=== PATIENT | male | born 2000 | race Caucasian/White ===

== ENCOUNTER 2022-11-27 20:25 | Emergency (ER) | payer OTHER, SELFPAY ==
--- NOTE | ~2022-11-27 | XR_ITS ---
EXAMINATION: XR knee RT min 4V DATE: 11/27/2022 20:39 INDICATION: Right knee pain post injury TECHNIQUE: Anteroposterior, 2 oblique and crosstable lateral views of the right knee were obtained COMPARISON: None. FINDINGS: Alignment is normal. No fracture. Joint spaces appear normal on nonweightbearing imaging. No joint e ffusion/layering lipohemarthrosis. Soft tissues are unremarkable. IMPRESSION: 1. Negative right knee radiographs. Reviewed, dictated and finalized at location A.
[2022-11-27 20:27] VITALS: BP 135/82; PULSE 65; RESP 20; TEMP 36.3; O2SAT 100
[2022-11-27] MEDS: KETOROLAC (*BKC) 60 MG/2 ML VIAL IM (22:34)
[2022-11-27] MEDS: HYDROcodone/acetaminophen (*CRX) 5-325 MG TABLET 1 TAB PO (22:34)
--- NOTE | 2022-11-27 22:45 | ED.LOWEXIN ---
HPI - Extremity Injury (Lower) General Chief Complaint: Extremity Injury, Lower Stated Complaint: Right leg injury Time Seen by Provider: 11/27/22 20:43 Source: patient Mode of arrival: ambulatory Limitations: no limitations History of Present Illness HPI Narrative: Patient is a 22 y/o male who presents to the ED with c/o R knee pain. Patient reports he was playing basketball earlier today and landed wrong on his right foot after jumping up for a lay up. He states his knee twisted at that time. He felt sharp pain immediately afterwards. He does not remember hearing or feeling a pop. He has not tried ambulating since then. He complains of pain and swelling to his right knee, worse with full extension. Denies any numbness or tingling. He has not taken anything for pain prior to arrival. Related Data Allergies Allergy/AdvReac Type Severity Reaction Status Date / Time No Known Allergies Allergy Verified 11/27/22 20:30 Review of Systems Review of Systems: CONSTITUTIONAL: Denies fever, chills, or sweats. SKIN: Denies rash or itching. MUSCULOSKELETAL: See HPI. NEUROLOGIC: Denies tingling, numbness, or weakness. All systems reviewed & are unremarkable except as noted in HPI and below Exam Narrative: GENERAL: Well appearing, well-nourished, non-toxic, in no acute distress. HEAD: Normocephalic, atraumatic. NECK: Supple. No adenopathy, no masses. RESPIRATORY: Airway patent, respirations nonlabored. CARDIOVASCULAR: Regular rate and rhythm without murmurs, rubs, or gallops. Pedal pulses 2+ and equal bilaterally. MUSCULOSKELETAL: Moves all extremities. Limited ROM of R knee flexion, nearly full extension of R knee but discomfort reported with full extension. Tenderness palpation along medial and inferior joint spaces. No significant pain with ballottement of patella. Mild swelling noted to anterior knee. Sensation intact. Discomfort reported with anterior drawer testing. SKIN: Warm, dry, normal color. No rashes. NEURO: A&O X3. Speech clear. Cranial nerves II-XII grossly intact. Steady gait. No ataxic movements. PSYCHIATRIC: Appropriate mood and affect. Normal interaction. Course Vital Signs Vital signs: Vital Signs Temperature 97.4 F L 11/27/22 20:27 Pulse Rate 65 11/27/22 20:27 Respiratory Rate 20 11/27/22 20:27 Blood Pressure 135/82 11/27/22 20:27 Pulse Oximetry 100 11/27/22 20:27 Oxygen Delivery Room Air 11/27/22 20:27 Temperature 97.4 F L 11/27/22 20:27 Pulse Rate 65 11/27/22 20:27 Respiratory Rate 20 11/27/22 20:27 Blood Pressure 135/82 11/27/22 20:27 Pulse Oximetry 100 11/27/22 20:27 Oxygen Delivery Room Air 11/27/22 20:27 MDM - Extremity Injury (Lower) MDM Narrative Medical decision making narrative: Patient presented to ED with right knee pain and swelling, twisting mechanism of injury. Patient's injury is consistent with musculoskeletal etiology. No signs of neurologic or vascular compromise on physical examination. Compartments are soft without signs of compartment syndrome. XR without evidence for osseous abnormality, joint effusion. Patient with positive anterior drawer testing, discussed likelihood of ligamentous versus meniscal injury. Will provide patient with knee immobilizer, crutches. Will provide pain medication. Patient is felt to be stable for discharge home and further outpatient management and treatment. Advised to call orthopedic office tomorrow morning to make follow-up appointment for further evaluation. Given return precautions. Discharged in stable condition. Medical Records Attestation: I reviewed the patient's medical records. Imaging Data Attestation: I personally reviewed and interpreted this imaging study as follows: Radiologist's impression: ITS Impressions Knee X-Ray 11/27/22 20:49 IMPRESSION: 1. Negative right knee radiographs. Discharge Plan Discharge Clinical Impression: Acute internal derangement
== END 2022-11-27 22:57 | disposition home or self-care (01) ==
PROVIDERS: Emergency Provider Physician Assistant
DX: M23.90 Unspecified internal derangement of unspecified knee (principal)
CPT/HCPCS: 73564; 96372; 99283; A9270; J1885

== ENCOUNTER → 2022-12-02 14:34 | Outpatient (CLI) | payer OTHER, SELFPAY ==
--- NOTE | ~2022-12-02 | MR_ITS ---
EXAMINATION: MR knee RT wo con DATE: 12/02/2022 15:15 INDICATION: Internal derangement of the right knee with generalized right knee pain and limited range of motion post fall while playing basketball TECHNIQUE: Magnetic resonance imaging (MRI) of the right knee was performed without intravenous contr ast. Sequences included coronal PD-weighted FSE, coronal PD-weighted FS FSE, sagittal T2-weighted FS E, sagittal PD-weighted FS FSE and axial PD weighted fat saturated FSE. COMPARISON: None. FINDINGS: Medial compartment: Medial meniscus is normal. Articular cartilage is normal. Lateral compartment: Lateral meniscus is normal. Articular cartilage is normal. Patellofemoral compartment: Articular cartilage is normal. Ligaments and tendons: Complete tear across the proximal anterior cruciate ligament. The posterior cruciate ligament is norm al. The medial collateral ligament and fibular collateral ligament complex are normal. The extensor m echanism is normal. The visualized medial and lateral hamstring tendons as well as the iliotibial ban d are normal. Fluid: Moderate-sized right knee joint effusion. There is some soft tissue edema about the knee most promine nt at the popliteal recess. No loose osteochondral bodies identified. Osseous/other: There is marrow edema along the posterior rim of the medial and lateral tibial plateau without discre te fracture line consistent with bone contusions related to an anterior tibial subluxation injury. No fracture or pathologic marrow replacing process. IMPRESSION: 1. Anterior tibial subluxation injury with complete tear of the anterior cruciate ligament and bone c ontusions along the posterior rim of the medial and lateral tibial plateau. 2. Normal menisci and cartilage 3. Moderate-sized right knee joint effusion. Reviewed, dictated and finalized at location A. IMPRESSION: 1. Anterior tibial subluxation injury with complete tear of the anterior crucia te ligament and bone contusions along the posterior rim of the medial and later al tibial plateau. 2. Normal menisci and cartilage 3. Moderate-sized right knee joint effusion.
== END ==
PROVIDERS: Visit Provider Physician Assistant Surgical
DX: M25.461 Effusion, right knee (principal); S83.511A Sprain of anterior cruciate ligament of right knee, initial encounter; X58.XXXA Exposure to other specified factors, initial encounter
CPT/HCPCS: 73721